=== PATIENT | female | born 1935 | race Caucasian/White ===

== ENCOUNTER 2021-06-05 08:38 | Emergency (ER) | payer MEDICARE ==
[~2021-06-05] VITALS: Ht 157.5 cm; Wt 66.0 kg
[2021-06-05] MEDS ORDERED: niCARdipine INJ. IV ONE (08:59)
[2021-06-05] MEDS ORDERED: dilTIAZem 25 MG/5 ML VIAL IVP ONE (09:00)
[2021-06-05 09:12] LABS: BASO # 0.1 x10^3/uL (0.0-0.2); BASO % 1 % (0-3); EOS % 0 % (0-3); HEMOGLOBIN 14.1 g/dL (12.0-15.5); LYMPH # 0.4 x10^3/uL (1.0-4.8); LYMPH % 4 % (24-48); MEAN CORPUSCULAR HEMOGLOBIN 30 pg (25-35); MEAN CORPUSCULAR HGB CONC 32 g/dL (31-37); MEAN CORPUSCULAR VOLUME 93 fL (79-100); MONO # 0.7 x10^3/uL (0.0-1.1); MONO % 7 % (0-9); NEUT # 9.2 x10^3uL (1.8-7.7); NEUT % 88 % (31-73); PLATELET COUNT 190 x10^3/uL (140-400); RED BLOOD COUNT 4.75 x10^6/uL (3.50-5.40); RED CELL DISTRIBUTION WIDTH 17.3 % (11.5-14.5); WHITE BLOOD COUNT 10.5 x10^3/uL (4.0-11.0)
--- NOTE | 2021-06-05 09:18 | RAD ---
XR CHEST 1V History: Reason: afib / Spl. Instructions: / History: Comparison: None. Findings: Hyperinflation. No consolidation or pleural effusion. Cardiomegaly. No pneumothorax. Impression: 1. Cardiomegaly. 2. Hyperinflation. Electronically signed by: Gage Salinas DO (06/05/2021 9:16 AM) [id number]
[2021-06-05 09:23] LABS: CALCIUM 9.2 mg/dL (8.5-10.1); GFR 23.6; POTASSIUM 4.4 mmol/L (3.5-5.1)
[2021-06-05] MEDS ORDERED: dilTIAZem HCL 30 MG TABLET PO ONE (09:30)
--- NOTE | 2021-06-05 09:35 | EKG ---
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
[2021-06-05 09:36] LABS: ALBUMIN 3.4 g/dL (3.4-5.0); ALBUMIN/GLOBULIN RATIO 0.9 (1.0-1.7); MAGNESIUM 2.3 mg/dL (1.8-2.4); PHOSPHORUS 5.1 mg/dL (2.6-4.7); TOTAL BILIRUBIN 2.6 mg/dL (0.2-1.0); TOTAL PROTEIN 7.4 g/dL (6.4-8.2)
[2021-06-05] MEDS ORDERED: METOPROLOL TART IMMED RELEASE 25 MG TABLET. PO ONE ×2 (10:00→10:45)
[2021-06-05] MEDS ORDERED: ONDANSETRON PF 4 MG/2 ML VIAL. IVP PRN (11:00)
[2021-06-05] MEDS ORDERED: HEPARIN for IV BOLUS 10,000 UNIT/10 ML VIAL. IV PRN (11:00)
[2021-06-05] MEDS ORDERED: HEPARIN 25,000UTS/250ML PREMIX 250 ML IV PRN (11:00)
[2021-06-05] MEDS ORDERED: HEPARIN for IV BOLUS 10,000 UNIT/10 ML VIAL. IV ONE (11:00)
[2021-06-05] MEDS ORDERED: ACETAMINOPHEN 325 MG TABLET PO PRN (11:00)
--- NOTE | 2021-06-05 11:53 | PHYS DOC ---
Past History Additional Past Medical Histor: RN to follow up Past Surgical History: No Surgical History Alcohol Use: None General Adult EDM: Chief Complaint: ALTERED MENTAL STATUS HPI: HPI: Patient is an 86 year-old male brought in by EMS from home. Is unclear who called EMS. Patient was found sitting crosslegged next to her bed. No signs of trauma. Patient lives alone in a house, and daughter checks on her a few times a week, patient has a history of dementia and per her primary care provider she has declined admission to a nursing facility. Review of Systems: Review of Systems: Unable to clearly obtain due to dementia Current Medications: Current Meds: Current Medications Medications (Trade) Dose Ordered Sig/Jonathon Start Time Stop Time Status Last Admin Dose Admin Acetaminophen (Tylenol) 650 mg PRN Q4HRS PRN 06/05/21 11:00 06/06/21 10:59 UNV Diltiazem HCl (Cardizem Iv Push) 10 mg 1X ONCE 06/05/21 09:00 06/05/21 09:01 UNV 06/05/21 09:04 10 MG Diltiazem HCl (Cardizem) 60 mg 1X ONCE 06/05/21 09:30 06/05/21 09:31 UNV 06/05/21 09:43 60 MG Fentanyl Citrate (Fentanyl 2ml Vial) 50 mcg PRN Q1HR PRN 06/05/21 11:00 06/06/21 10:59 UNV Heparin Sodium (Porcine) (Heparin Sodium) 1,650 unit PRN Q6HRS PRN 06/05/21 11:00 UNV Heparin Sodium/ Dextrose 250 ml @ 0 mls/hr CONT PRN 06/05/21 11:00 UNV 06/05/21 11:31 7.9 MLS/HR Metoprolol Tartrate (Lopressor) 25 mg 1X ONCE 06/05/21 10:45 06/05/21 10:46 UNV 06/05/21 10:45 25 MG Nicardipine HCl (Cardene) 25 mg STK-MED ONCE 06/05/21 08:59 06/05/21 09:00 DC Ondansetron HCl (Zofran) 4 mg PRN Q4HRS PRN 06/05/21 11:00 06/06/21 10:59 UNV Allergies: Allergies: Allergies Coded Allergies Type Severity Reaction Last Updated Verified No Known Drug Allergies 06/05/21 No Physical Exam: PE: Constitutional: Well developed, well nourished, no acute distress, non-toxic appearance. [] HENT: Normocephalic, atraumatic, bilateral external ears normal, nose normal. [] Eyes: PERRLA, conjunctiva normal, no discharge. [] Neck: No rigidity, supple, no stridor. [] Cardiovascular: Regular rate and rhythm, brisk cap refill [] Lungs & Thorax: Non labored symmetric respirations, no tachypnea or respiratory distress [] Abdomen: Soft, nondistended. Skin: Warm, dry, no erythema, no rash. [] Back: Unremarkable Extremities: No deformities, range of motion grossly intact, bilateral lower extremity edema [] Neurologic: Alert and oriented X 2, answers questions inappropriately Psychologic: Affect normal, judgement normal, mood normal. [] Current Patient Data: Labs: Laboratory Tests Test 06/05/21 08:50 White Blood Count 10.5 x10^3/uL (4.0-11.0) Red Blood Count 4.75 x10^6/uL (3.50-5.40) Hemoglobin 14.1 g/dL (12.0-15.5) Hematocrit 44.0 % (36.0-47.0) Mean Corpuscular Volume 93 fL (79-100) Mean Corpuscular Hemoglobin 30 pg (25-35) Mean Corpuscular Hemoglobin Concent 32 g/dL (31-37) Red Cell Distribution Width 17.3 % (11.5-14.5) H Platelet Count 190 x10^3/uL (140-400) Neutrophils (%) (Auto) 88 % (31-73) H Lymphocytes (%) (Auto) 4 % (24-48) L Monocytes (%) (Auto) 7 % (0-9) Eosinophils (%) (Auto) 0 % (0-3) Basophils (%) (Auto) 1 % (0-3) Neutrophils # (Auto) 9.2 x10^3uL (1.8-7.7) H Lymphocytes # (Auto) 0.4 x10^3/uL (1.0-4.8) L Monocytes # (Auto) 0.7 x10^3/uL (0.0-1.1) Eosinophils # (Auto) 0.0 x10^3/uL (0.0-0.7) Basophils # (Auto) 0.1 x10^3/uL (0.0-0.2) Prothrombin Time 11.2 SEC (9.4-11.4) Prothrombin Time INR 1.1 (0.9-1.1) D-Dimer (Leeanna) 4.32 mg/L (0.00-0.50) H Sodium Level 141 mmol/L (136-145) Potassium Level 4.4 mmol/L (3.5-5.1) Chloride Level 103 mmol/L (98-107) Carbon Dioxide Level 26 mmol/L (21-32) Anion Gap 12 (6-14) Blood Urea Nitrogen 43 mg/dL (7-20) H Creatinine 2.0 mg/dL (0.6-1.0) H Estimated GFR (Cockcroft-Gault) 23.6 BUN/Creatinine Ratio 22 (6-20) H Glucose Level 113 mg/dL (70-99) H Calcium Level 9.2 mg/dL (8.5-10.1) Phosphorus Level 5.1 mg/dL (2.6-4.7) H Magnesium Level 2.3 mg/dL (1.8-2.4) Total Bilirubin 2.6 mg/dL (0.2-1.0) H Aspartate Amino Transferase (AST) 35 U/L (15-37) Alanine Aminotransferase (ALT) 18 U/L (14-59) Alkaline Phosphatase 115 U/L (46-116) Troponin I Quantitative 0.195 ng/mL (0-0.055) H YH-Moi-K-Type Natriuretic Peptide 63456 pg/mL (0-449) H Total Protein 7.4 g/dL (6.4-8.2) Albumin 3.4 g/dL (3.4-5.0) Albumin/Globulin Ratio 0.9 (1.0-1.7) L Vital Signs: Vital Signs Date Time Temp Pulse Resp B/P (MAP) Pulse Ox O2 Delivery O2 Flow Rate FiO2 06/05/21 11:41 75 18 132/90 (104) 96 Room Air 06/05/21 08:43 98.3 EKG: EKG: Atrial fibrillation with RVR, heart rate 143, occasional PVCs [] Radiology/Procedures: Radiology/Procedures: [address] [id number] IMAGING REPORT Signed PATIENT: MIGUELITO MEYER ACCOUNT: [id number] : 1935 LOCATION: ER AGE: 86 SEX: F EXAM STATUS: PRE ER ORD. PHYSICIAN: CHELSEY MATOS MD REASON: afib PROCEDURE: CHEST AP ONLY XR CHEST 1V History: Reason: afib / Spl. Instructions: / History: Comparison: None. Findings: Hyperinflation. No consolidation or pleural effusion. Cardiomegaly. No pneumothorax. Impression: 1. Cardiomegaly. 2. Hyperinflation. Electronically signed by: Gage Salinas DO (06/05/2021 9:16 AM) [id number] DICTATED AND SIGNED BY: GAGE SALINAS DO DATE: 06/05/21913 CC: CHELSEY MATOS MD ~MTH0 0 [] Heart Score: C/O Chest Pain: No HEART Score for Chest Pain: HEART Score for Chest Pain Response (Comments) Value History Slighlty/Non-Suspicious 0 ECG Nonspecific Repolarizatio 1 Age > 65 2 Risk Factors >3 Risk Factors or Hx CAD 2 Troponin >3 x Normal Limit 2 Total 7 Risk Factors: Risk Factors: DM, Current or recent (<one month) smoker, HTN, HLP, family history of CAD, obesity. Risk Scores: Score 0 - 3: 2.5% MACE over next 6 weeks - Discharge Home Score 4 - 6: 20.3% MACE over next 6 weeks - Admit for Clinical Observation Score 7 - 10: 72.7% MACE over next 6 weeks - Early Invasive Strategies Course & Med Decision Making: Course & Med Decision Making Pertinent Labs and Imaging studies reviewed. (See chart for details) [] Consult to cardiology and admitted to Dr. Drake. She was originally admitted to this hospital but due to the high volume of patients admitted currently she will be transferred to [place]. Janie Disclaimer: Janie Disclaimer: This electronic medical record was generated, in whole or in part, using a voice recognition dictation system. Departure Departure: Impression: Primary Impression: Altered mental status Additional Impressions: Atrial fibrillation with RVR NSTEMI (non-ST elevated myocardial infarction) Disposition: 02 SHORT TERM HOSPITAL Admitting Physician: Ger Drake Condition: STABLE Referrals: PCP,NO (PCP) CHELSEY MATOS MD Jun 05, 2021 11:53
[2021-06-05 14:41] VITALS: BP 128/87
[2021-06-05 22:00] VITALS: BP 136/82
== END 2021-06-05 22:05 | disposition short-term general hospital (02) ==
LOC: ER 08:38
DX: I21.4 Non-ST elevation (NSTEMI) myocardial infarction (principal); I48.20 Chronic atrial fibrillation, unspecified; F03.90 Unspecified dementia, unspecified severity, without behavioral disturbance, psychotic disturbance, mood disturbance, and anxiety
CPT/HCPCS: 36415; 71045; 80053; 83735; 83880; 84100; 84484; 85025; 85379; 85610; 85730; 87040; 93005; 96365; 96366; 96375; 96376; 99285; J1644; J3010; J3490